=== PATIENT | male | born 1990 | race Caucasian/White ===

== ENCOUNTER 2021-11-23 05:38 | Emergency (ER) | payer SELFPAY ==
--- NOTE | ~2021-11-23 | XR_ITS ---
CORRECTED REPORT ORDER CHANGE/ TITLE CHANGE 12/02/21PK XR knee RIGHT 3VIEW DATE: 11/23/2021 06:10 INDICATION: Right knee injury, pain TECHNIQUE: 4 views COMPARISON: None FINDINGS: No fracture or dislocation or joint effusion is detected. No periosteal reaction or bone destruction. No radiopaque interarticular loose body or chondrocalcinosis. Joint spaces are relatively preserved. IMPRESSION: No significant abnormality Reviewed, dictated and finalized at location [facility]
[2021-11-23 05:50] VITALS: BP 135/78; PULSE 105; RESP 20; TEMP 36.3; O2SAT 100
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
--- NOTE | 2021-11-23 07:27 | PC.NURSE ---
patient's family members: Selvin [phone] Mitch [phone]
[2021-11-23] MEDS: TETANUS,DIPHTHERIA,AC PERTUSSIS ADULT (0.5 ML) BOOSTRIX IM (07:48)
[2021-11-23] MEDS: ceFAZolin 2 GM/D5W 50 ML 2 GM/50 ML BAG IVPB (08:22)
[2021-11-23 09:05] VITALS: BP 104/62; PULSE 90; RESP 17; O2SAT 98
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
--- NOTE | 2021-11-23 09:49 | PM.OP ---
Procedure Note - Brief Procedure Note - Brief Date of procedure: 11/23/21 Pre-op diagnosis: right knee injury Deep complex laceration right anterior knee. Post-op diagnosis: Same Procedure performed: Deep wound closure right anterior knee, performed in the ED. Description of procedure: The wound was irrigated and probed. The wound was vertical, approximately 4 cm in length, centered at the proximal 3rd of the patella. The depth in occluded deep to the subcutaneous tissues at the prepatellar bursa. The bone itself did not appear to be involved. The quadriceps tendon appeared normal. There was another area of a small superficial abrasion more medially also anterior to the patella. Betadine scrub was performed. This was then rinsed after 3 minutes. Field block was previously performed with 5 mL 1% lidocaine with epinephrine. The wound was closed with interrupted 3-0 nylon suture. The wound itself was not closed too tightly, to allow for potential drainage over the next several days. Overall it looked clean. The skin edges were a bit bruised but otherwise viable. Xeroform gauze followed by 4x4s placed over the wound. This was wrapped with Coban. Knee immobilizer placed. Patient tolerated the procedure well. Anesthesia: local Surgeon: Ramón Valdovinos MD Estimated blood loss (mL): 1 Drains: No Packing: No Pathology: None sent Complications: No immediate complications Condition: Stable Disposition: Other (home from ED)
== END 2021-11-23 09:07 | disposition home or self-care (01) ==
PROVIDERS: Emergency Provider Emergency Medicine
DX: S81.011A Laceration without foreign body, right knee, initial encounter (principal); Z23 Encounter for immunization; V86.55XA Driver of 3- or 4- wheeled all-terrain vehicle (ATV) injured in nontraffic accident, initial encounter
CPT/HCPCS: 12034; 73562; 90471; 90715; 96365; 99284; J0690; J2270